=== PATIENT | male | born 1960 | race Caucasian/White ===

== ENCOUNTER 2018-08-31 05:46 | Inpatient (IN) | payer OTHER ==
[~2018-08-31] VITALS: Ht 175.3 cm; Wt 105.8 kg
[~2018-08-31 05:46] MED LIST: ALBU8.5H8 INH; HYDR-3237 PO; TRAM50TA2 PO
[2018-08-31] MEDS ORDERED: LACTATED RINGERS 1,000 ML IV SCH (06:06)
[2018-08-31 06:10] VITALS: BP 154/88
[2018-08-31] MEDS ORDERED: BUPIVACAINE/EPI 0.5% 1:200K ONE (06:50)
[2018-08-31] MEDS ORDERED: BACITRACIN 50,000 UNIT ONE (06:50)
[2018-08-31] MEDS ORDERED: THROMBIN 20,000 UNIT VIAL TP ONE (07:01)
[2018-08-31] MEDS ORDERED: MIDAZOLAM 1 MG/ML, 2ML ONE (07:15)
[2018-08-31] MEDS ORDERED: PROPOFOL 100 ML ONE (07:16)
[2018-08-31] MEDS ORDERED: FENTANYL PF 250 MCG/5ML ONE ×2 (07:16→08:20)
[2018-08-31] MEDS ORDERED: DEXAMETHASONE 4 MG/ML, 1ML ONE (07:28)
[2018-08-31] MEDS ORDERED: ONDANSETRON 2MG/ML, 2ML ONE (07:28)
[2018-08-31] MEDS ORDERED: ALBUTEROL SULFATE 200 PUFFS/8.5 GR INH ONE (07:28)
[2018-08-31] MEDS ORDERED: CEFAZOLIN 1,000 MG ONE (07:28)
[2018-08-31] MEDS ORDERED: HYDROmorphone 2 MG/ML, 1ML IVPush PRN (07:30)
[2018-08-31] MEDS ORDERED: ALBUTEROL SULFATE 2.5 MG/3 ML NPPB PRN ×2 (07:30→13:00)
[2018-08-31] MEDS ORDERED: PROMETHAZINE 25 MG/ML, 1ML IV PRN (07:30)
[2018-08-31] MEDS ORDERED: hydrALAzine 20 MG/ML, 1ML IV PRN (07:30)
[2018-08-31] MEDS ORDERED: HALOPERIDOL 5 MG/ML IV PRN ×2 (07:30)
[2018-08-31] MEDS ORDERED: GABAPENTIN 300 MG CAPSULE PO ONE (07:30)
[2018-08-31] MEDS ORDERED: DIPHENHYDRAMINE 50 MG/ML, 1ML IVPush PRN ×2 (07:30→13:00)
[2018-08-31] MEDS ORDERED: PROCHLORPERAZINE 5 MG/ML, 2ML IV PRN (07:30)
[2018-08-31] MEDS ORDERED: MEPERIDINE/PF 25MG/0.5ML IVPush PRN (07:30)
[2018-08-31] MEDS ORDERED: OXYcodone 5 MG/5 ML ORAL.SOL UDC PO PRN (07:30)
[2018-08-31] MEDS ORDERED: METOPROLOL 1 MG/ML, 5ML IV PRN (07:30)
[2018-08-31] MEDS ORDERED: LABETALOL 5MG/ML, 20ML IV PRN (07:30)
[2018-08-31] MEDS ORDERED: ACETAMINOPHEN 500 MG TABLET PO ONE (07:30)
[2018-08-31] MEDS ORDERED: FENTANYL PF 100 MCG/2ML ONE (10:34)
[2018-08-31] MEDS ORDERED: OXYcodone 5 MG/5 ML ORAL.SOL UDC ONE (10:34)
[2018-08-31] MEDS: FENTANYL PF 100 MCG/2ML IV PRN ×2 (10:36→11:05)
[2018-08-31] MEDS ORDERED: ALBUTEROL SULFATE 2.5 MG/3 ML ONE (10:39)
[2018-08-31] MEDS ORDERED: METHOCARBAMOL 1,000 MG in DEXTROSE 5% 100 ML IV ONE (11:30)
[2018-08-31 12:00] VITALS: BP 128/76
[2018-08-31] MEDS ORDERED: HYDROmorphone 2MG TABLET PO PRN (12:30)
[2018-08-31] MEDS ORDERED: HYDROmorphone 2 MG/ML, 1ML IM PRN (12:30)
[2018-08-31] MEDS ORDERED: PROMETHAZINE 25 MG/ML, 1ML IM PRN (13:00)
[2018-08-31] MEDS ORDERED: METHOCARBAMOL 750 MG TABLET PO PRN (13:00)
[2018-08-31] MEDS ORDERED: HYDROmorphone 2 MG/ML, 1ML IV PRN (13:00)
[2018-08-31] MEDS ORDERED: MAGNESIUM HYDROXIDE 8%, 30ML UDC PO PRN (13:00)
[2018-08-31] MEDS ORDERED: ONDANSETRON 2MG/ML, 2ML IV PRN (13:00)
[2018-08-31] MEDS ORDERED: morphine SULFATE 10 MG/ML, 1ML IV PRN (13:00)
[2018-08-31] MEDS ORDERED: HYDROcodone/APAP 10/325 MG TABLET PO PRN (13:00)
[2018-08-31] MEDS ORDERED: DIPHENHYDRAMINE 50 MG/ML, 1ML IM PRN (13:00)
[2018-08-31] MEDS ORDERED: DIPHENHYDRAMINE 50 MG CAPSULE PO PRN (13:00)
[2018-08-31] MEDS ORDERED: BISACODYL 10 MG SUPP PR PRN (13:00)
[2018-08-31] MEDS: CEFAZOLIN PMX 1GM/50ML 50 ML IVPB SCH ×2 (15:54→23:48)
[2018-08-31] MEDS: NS + 20MEQ KCL 1,000 ML IV SCH ×2 (15:54→20:35)
[2018-08-31] MEDS: HYDROcodone/APAP 5/325 TABLET PO PRN (17:58)
[2018-08-31] MEDS: METHOCARBAMOL 750 MG in DEXTROSE 5% 100 ML IV SCH (20:11)
[2018-08-31 20:53] VITALS: BP 148/81
[2018-08-31] MEDS ORDERED: ZOLPIDEM 5MG TABLET PO PRN (21:00)
[2018-09-01 00:08] VITALS: BP 135/74
[2018-09-01] MEDS: METHOCARBAMOL 750 MG in DEXTROSE 5% 100 ML IV SCH (03:51)
[2018-09-01 04:15] VITALS: BP 136/74
[2018-09-01 05:39] LABS: BASOPHILS # (AUTO) 0.02 x10^3/uL (0-0.1); BASOPHILS % (AUTO) 0 % (0-1); EOSINOPHILS # (AUTO) 0.01 x10^3/uL (0-0.4); EOSINOPHILS % (AUTO) 0 % (1-7); LYMPHOCYTES # (AUTO) 1.58 x10^3/uL (1-3.4); LYMPHOCYTES % (AUTO) 10 % (22-44); MD NO; MEAN CORPUSCULAR HEMOGLOBIN 31.6 pg (27.5-34.5); MEAN CORPUSCULAR HGB CONC 33.8 g/dL (33.2-36.2); MEAN CORPUSCULAR VOLUME 93.4 fL (81-97); MONOCYTES # (AUTO) 0.76 x10^3/uL (0.2-0.8); MONOCYTES % (AUTO) 5 % (2-9); NEUTROPHILS # (AUTO) 13.31 x10^3/uL (1.8-6.8); NEUTROPHILS % (AUTO) 85 % (42-75); PLATELET COUNT 267 x10^3/uL (130-400)
[2018-09-01 08:31] VITALS: BP 150/87
[2018-09-01] MEDS ORDERED: HYDR-3240 PO (08:34)
[2018-09-01] MEDS: HYDROcodone/APAP 5/325 TABLET PO PRN (08:35)
[2018-09-01] MEDS ORDERED: METH750T87 PO (08:35)
[2018-09-01] MEDS ORDERED: SENNA/DOCUSATE TABLET PO SCH (09:00)
[2018-09-01 10:06] VITALS: BP 18/67
[2018-09-02] MEDS ORDERED: DIAZEPAM 5 MG/ML, 2ML IV PRN (20:00)
[2018-09-02] MEDS ORDERED: METHOCARBAMOL 750 MG TABLET PO SCH (20:00)
== END 2018-09-01 10:46 | disposition home or self-care (01) | DRG 472 ==
LOC: OR 05:46 → EDSTATUS 07:30 → 4NOR 11:50 → OR 12:04 → 4NOR 12:04 → DCLOUNGE 09-01 10:33
PROVIDERS: ADMIT Neurological Surgery; ATTEND Neurological Surgery
PROC: 0RB30ZZ Excision of Cervical Vertebral Disc, Open Approach (ICD-10-PCS; 2018-08-31)
PROC: 01N10ZZ Release Cervical Nerve, Open Approach (ICD-10-PCS; 2018-08-31)
PROC: 00NW0ZZ Release Cervical Spinal Cord, Open Approach (ICD-10-PCS; 2018-08-31)
PROC: 4A11X4G Monitoring of Peripheral Nervous Electrical Activity, Intraoperative, External Approach (ICD-10-PCS; 2018-08-31)
PROC: 0RG20A0 Fusion of 2 or more Cervical Vertebral Joints with Interbody Fusion Device, Anterior Approach, Anterior Column, Open Approach (ICD-10-PCS; principal; 2018-08-31 07:30)
DX: M48.02 Spinal stenosis, cervical region (principal); M50.022 Cervical disc disorder at C5-C6 level with myelopathy; M50.023 Cervical disc disorder at C6-C7 level with myelopathy; J45.909 Unspecified asthma, uncomplicated; G47.33 Obstructive sleep apnea (adult) (pediatric); M50.122 Cervical disc disorder at C5-C6 level with radiculopathy; M50.123 Cervical disc disorder at C6-C7 level with radiculopathy; G62.9 Polyneuropathy, unspecified
CPT/HCPCS: 36415; 72040; 85025; 86850; 86900; 94640; C1713; C1776; C9359; G0378; J0690; J1100; J2250; J2405; J2704; J3010; J3480; J2800; J7120